=== PATIENT | male | born 1965 | race Caucasian/White ===

== ENCOUNTER 2018-01-31 06:18 | Day surgery (SDC) | payer OTHER ==
[~2018-01-31] VITALS: Ht 175.3 cm; Wt 98.9 kg
[2018-01-31 06:43] VITALS: BP 127/78
[2018-01-31 09:14] VITALS: BP 108/67
== END 2018-01-31 09:45 | disposition home or self-care (01) ==
LOC: DS 06:18 → GI 07:30 → OR 07:30 → DS 09:45
PROVIDERS: Internal Medicine Gastroenterology
PROC: 0DBH8ZZ Excision of Cecum, Via Natural or Artificial Opening Endoscopic (ICD-10-PCS; principal; 2018-01-31 07:30)
PROC: 0DBN8ZZ Excision of Sigmoid Colon, Via Natural or Artificial Opening Endoscopic (ICD-10-PCS; 2018-01-31 07:30)
DX: Z12.11 Encounter for screening for malignant neoplasm of colon (principal); K63.5 Polyp of colon; K64.8 Other hemorrhoids
CPT/HCPCS: 45378; J1200; J1610; J2250; J2310; J3010; J3490

== ENCOUNTER 2018-10-19 03:44 | Emergency (ER) | payer OTHER ==
[~2018-10-19] VITALS: Ht 175.3 cm; Wt 102.1 kg
[2018-10-19 03:49] VITALS: BP 144/85; Ht 175.3 cm; Wt 102.1 kg
== END 2018-10-19 06:44 | disposition left against medical advice (07) ==
LOC: ED 03:44
DX: Z53.21 Procedure and treatment not carried out due to patient leaving prior to being seen by health care provider (principal)